=== PATIENT | female | born 1955 | race Caucasian/White ===

== ENCOUNTER 2016-12-04 12:07 | Day surgery (SDC) | payer BC, OTHER ==
[~2016-12-04 12:07] MED LIST: RINGERS SOLUTION,LACTATED 1,000 ML IV PRN
--- OUTSIDE RECORDS SUMMARY | 2016-12-04 12:11 | XMS REPORT | Continuity of Care Document ---
:1955 Author Organization [facility] ([facility]) Address [address] [place] [address] Phone [phone] Care Team Providers Name Role Phone Darnell Cosme Primary Care Provider [phone] Source Comments This disclosure is being made pursuant to the Care Everywhere program, applicable federal and state laws, and may not contain all informaitonavailable regarding this patient.[facility] ([facility]) Active Allergies and Adverse Reactions Allergen Noted Date Severity Reactions Comments Flunisolide Anaphylactic Shock Hydrocodone 07/16/2015 Pruritus Hydroxyzine Hcl Hematoma Sulfa (Sulfonamide Antibiotics) 07/16/2015 Rash Current Medications Prescription Sig. Disp. Refills Start Date End Date Status atorvastatin (LIPITOR) Take 10 mg by Active 10 mg tablet mouth every evening. cyclobenzaprine 10 mg Take 10 mg by Active tablet mouth at bedtime as needed for Muscle spasms albuterol 90 Use 2 Puffs by Active mcg/Actuation inhaler inhalation every 4 hours as needed nitroglycerin 0.[address] 0.4 mg Active tablet under the tongue every 5 minutes as needed for Chest pain (max 3 doses in 15 minutes) HYDROmorphone 4 mg Take 4-8 mg by Active tablet mouth every 4 hours as needed loratadine 10 mg tablet Take 10 mg by Active mouth daily as needed. metoPROLol succinate 50 Take 50 mg by Active mg XL tablet mouth daily gabapentin 300 mg Take 600 mg by Active capsule mouth 3 times daily. venlafaxine 75 mg XR Take 75 mg by Active capsule mouth daily. traZODone 50 mg tablet Take 50 mg by Active mouth at bedtime. oxybutynin 15 mg CR Take 1 tablet (15 30 tablet 09/18/2016 Active tablet mg total) by mouth daily. 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 RU abdominal pain 08/11/2015 Urinary incontinence in female 07/17/2015 Chest pain, unspecified 09/09/2007 Most Recent Encounters Date Type Specialty Providers Description 09/24/2016 Telephone Urology Karin Hurtado MD Chief Comp: Results 09/18/2016 Office Visit Urology Karin Hurtado MD Dx: Urge incontinence (Primary Dx) Immunizations Name Dates Previously Given Next Due Influenza, unspecified 07/02/2015 Social History Tobacco Use Types Packs/Day Years Used Date Former Smoker Quit: 09/07/1984 Smokeless Tobacco: Never Used Tobacco Cessation:Counseling Given: Yes Comments: Alcohol Use Drinks/Week oz/Week Comments Yes occasional Last Filed Vital Signs Vital Sign Reading Time Taken Blood Pressure 161/88 09/18/2016 2:34 PM 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 Temperature 35.9 C (96.6 F) 09/18/2016 2:34 PM 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 Respiratory Rate 20 05/27/2016 10:36 AM CDT Height 1.549 m (5' 0.98") 11/06/2015 1:16 PM 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 Weight 88 kg (194 lb 0.1 oz) 11/06/2015 1:16 PM 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 Body Mass Index 36.68 11/06/2015 1:16 PM 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 Oxygen Saturation 93% 08/15/2015 8:00 AM 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 Plan of Care Date Type Specialty Providers Description 12/09/2016 Appointment Radiology Chief Comp: Patient Reported Reason For Visit 12/09/2016 Appointment Med GI/Hepatology Johlin, Robert C Chief Comp: Patient MD Desiree Reported Reason For [address] [place] [address] [phone] (Fax) 12/18/2016 Appointment Urology Karin Hurtado, Chief Comp: Patient Reported Reason For [address] [place] [address] [phone] (Fax) Health Maintenance Due Date Last Done Comments Hepatitis B Vaccine (1 of 3 - Primary Series) 1955 Tdap Vaccine 1964 Lipid Disorder Screening 1971 Td Vaccine 1971 Cervical Cancer Screening 1983 Mammogram 1993 Colonoscopy 2003 Zoster Vaccine 2013 Influenza Vaccine: Seasonal (#1) 04/07/2016 07/02/2015 HCV Screening Completed 08/12/2015 Results from Last 3 Months URINE CULTURE, ROUTINE AEROBIC (09/18/2016 3:08 PM) Component Value Range Quantitative Culture Mixed Sara (Urogenital) suggesting an improperly collected specimen(A) Specimen Culture - Urine, Midstream clean catch POST-VOID RESIDUAL (BVI), POINT OF CARE (09/18/2016) Component Value Range POST-VOID RESIDUAL 30 ml
--- OUTSIDE RECORDS SUMMARY | 2016-12-04 12:11 | XMS REPORT | Continuity of Care Document ---
:1955 Author Organization [facility] Address Unavailable [place] [address] Care Team Providers Name Role Phone Darnell Cosme Primary Care Provider [phone] Source Comments This disclosure is being made pursuant to the F[employer]em[employer] program and maynot contain all information available regarding this patient.[facility] Active Allergies and Adverse Reactions Not on File Current Medications Be aware that medications may not be up to date as of this document. Alwaysverify current medications with the patient. Prescription Sig. Disp. Refills Start Date End Date Status HYDROmorphone Take 4-8 mg by Active (DILAUDID) 4 MG mouth every 4 tablet (four) hours as needed. atorvastatin Take 20 mg by Active (LIPITOR) 20 MG mouth daily. tablet oxybutynin (DITROPAN Take 15 mg by Active XL) 15 MG 24 hr mouth daily. tablet metoprolol tartrate Take 50 mg by Active (LOPRESSOR) 50 MG mouth daily. tablet clonazePAM Take 1 tablet 60 tablet 0 11/10/2016 Active (KLONOPIN) 0.25 MG (0.25 mg disintegrating total) by tablet mouth 2 (two) times daily as needed. venlafaxine HCl Take 1 tablet 90 tablet 3 11/20/2016 Active (EFFEXOR) 75 MG by mouth tablet daily. felodipine (PLENDIL) Take 1 tablet 90 tablet 1 11/27/2016 Active 5 MG 24 hr tablet by mouth daily. meloxicam (MOBIC) Take 1 tablet 180 tablet 0 12/01/2016 Active 7.5 MG tablet by mouth 2 7 (two) times daily. gabapentin Take 1 tablet 270 tablet 0 12/01/2016 Active (NEURONTIN) 600 MG by mouth 3 7 tablet (three) times daily. acyclovir (ZOVIRAX) Apply a thin 15 g 1 11/07/2016 Discontinued 5 % cream film to 7 affected area 6 times daily for 7 days gabapentin Take 600 mg by Discontinued (NEURONTIN) 600 MG mouth 3 7 tablet (three) times daily. meloxicam (MOBIC) Take 7.5 mg by Discontinued 7.5 MG tablet mouth 2 (two) 7 times daily. amLODIPine (NORVASC) Take 10 mg by Discontinued 10 MG tablet mouth daily. 7 amLODIPine (NORVASC) Take 1 tablet 90 tablet 3 11/13/2016 Discontinued 10 MG tablet by mouth 7 daily. felodipine (PLENDIL) Take 5 mg by Discontinued 5 MG 24 hr tablet mouth daily. 7 Active Problems Problem Noted Date Hypertension Hyperlipidemia Most Recent Encounters Date Type Specialty Providers Description 12/04/2016 Data Import 12/01/2016 Refill Family Medicine Milana Noel RN 11/27/2016 Refill Family Medicine Cristina Neal, [facility] 11/27/2016 Abstract Family Medicine Cristina Neal, [facility] 11/24/2016 Orders Only Provider, Not In System 11/20/2016 Telephone Family Medicine Monique Ortiz RN 11/20/2016 Refill Family Medicine Ariadne Bravo L, RMA 11/13/2016 Refill Family Medicine Cristina Neal, [employer] 11/11/2016 Refill Family Medicine Covert, Rose Zaidi, RMA 11/10/2016 Office Visit Family Medicine Darnell Cosme, Malcolm syta (Primary Dx); Essential hypertension; Burning tongue 11/07/2016 Refill Family Medicine Lawrence Ariadne L, RMA 11/07/2016 Refill Family Medicine Lawrence Ariadne L, RMA 11/07/2016 Refill Family Medicine Lawrence Ariadne L, A 11/04/2016 Abstract Family Medicine Cristina Neal, [employer] 11/03/2016 Refill Family Medicine Lawrence Ariadne L, RMA 11/03/2016 Refill Family Medicine Lawrence Ariadne L, RMA 10/16/2016 Scanned Document Family Medicine Provider, Not In System Social History Tobacco Use Types Packs/Day Years Used Date Never Smoker Smokeless Tobacco: Never Used Alcohol Use Drinks/Week oz/Week Comments No Last Filed Vital Signs Vital Sign Reading Time Taken Blood Pressure 185/83 11/10/2016 11:53 AM [employer] SUPER[employer]OR Pulse 66 11/10/2016 11:53 AM [employer] SUPERVISOR Temperature 36.3 C (97.4 F) 11/10/2016 11:53 AM [employer] SUPERVISOR Respiratory Rate 16 11/10/2016 11:53 AM [employer] SUPER[employer]OR Height 1.549 m (5' 1") 11/10/2016 11:53 AM P[employer] SUPERVISOR Weight 87.907 kg (193 lb 12.8 oz) 11/10/2016 11:53 AM [employer] SUPERVISOR Body Mass Index 36.64 11/10/2016 11:53 AM [employer] SUPERVISOR Oxygen Saturation 96% 11/10/2016 11:53 AM [employer] SUPERVISOR Plan of Care Patient Goal Type Goal Blood Pressure Blood Pressure below 140/90 Health Maintenance Due Date Last Done Comments Hepatitis C Screening 1971 Tetanus/Pertussis (1 - Tdap) 1972 Pap Smear 1974 Mammogram 2003 Well Adult Visit 2003 Zoster Vaccine 60+ 2013 Influenza Immunization (#1) 2016 Colonoscopy 02/13/2019 02/13/2009, 09/07/1993 Results from Last 3 Months US PELVIS TRANSAB TRANSVAG (11/12/2016)Comprehensive metabolic panel (2016 1:47 PM) Component Value Range Glucose 118(H)Comment: 60-100 mg/dL Fasting Plasma Glucose (FPG)<100 MG/DL Impaired Fasting Glucose (IFG) 100-125 MG/DL Provisional Diagnosis of Diabetes Mellitus > yv=143 MG/DL (Diagnosis Must Be Confirmed) BUN, Blood 16 10-20 mg/dL Creatinine 0.6 0.6-1.2 mg/dL Glomerular Filtration Rate 96 >80 mL/min/1.73mm2 Estimate Glomerlular Filtration Rate 111Comment:The estimated GFR >80 mL/min/1.73mm2 Estimate- has not been validated for women or patients with serious comorbid conditions, or with extremes of body size, muscle mass, or nutritional status. Calcium 9.4 8.4-10.2 mg/dL Sodium 138 136-145 mmol/L Potassium 4.2Comment:Results may be 3.5-4.6 mmol/L falsely increased due to hemolysis. Chloride 106 99-111 mmol/L CO2 20.4(L) 21.0-32.0 mmol/L Albumin 3.7 3.5-5.0 g/dL Total Protein 6.8Comment:Results may be 6.1-8.0 g/dL falsely increased due to hemolysis. Bilirubin Total 0.8 0.2-1.2 mg/dL Alkaline Phosphatase 84 40-150 U/L AST 19Comment:Results may be 5-34 U/L falsely increased due to hemolysis. ALT 19Comment:Results may be 0-55 u/L falsely increased due to hemolysis. Narrative Testing performed at [facility], [address] [place] [address].Step Down Nurse Mervin Vargas MD CBC auto differential (11/10/2016 1:47 PM) Component Value Range WBC 5.8 3.1-11.0 x10^3/uL RBC 5.23(H) 3.60-5.17 x10^6/uL Hemoglobin 15.0 11.1-15.3 g/dL Hematocrit 44.1 33.7-46.0 % MCV 84.3 81.0-98.0 fL MCH 28.7 27.2-33.3 pg MCHC 34.0 31.7-35.6 g/dL RDW 13.6 10.8-14.6 % SD-RDW 41.4 37.0-50.4 fL Platelets 217 147-370 x10^3/uL MPV 10.7 9.1-12.1 fL NE% 64.2 42.0-76.0 % %LYMPH 23.8 15.0-44.0 % %MONO 8.6 4.0-13.0 % % Eosinophils 2.9 0.0-6.0 % % Basophils 0.3 0.0-1.0 % Imm Gran Relative 0.2 0.0-1.0 % NE# 3.7 1.2-7.3 x10^3/uL Lymphs # 1.4 0.6-3.5 x10^3/uL Davie# 0.5 0.2-0.9 x10^3/uL Eosinophil # 0.2 0.0-0.4 x10^3/uL Baso# 0.0 0.0-0.1 x10^3/uL Imm Gran Absolute 0.01 0.00-0.10 x10^3/uL Specimen BLOOD Narrative Testing performed at [facility], [address] [place] [address].Step Down Nurse Mervin Vargas MD TSH (11/10/2016 1:47 PM) Component Value Range TSH 2.567 0.350-4.940 uIU/mL Narrative Testing performed at [facility], [address] [place] [address].Step Down Nurse Mervin Vargas MD Hemoglobin A1c (11/10/2016 1:47 PM) Component Value Range Hemoglobin A1C 5.9Comment: % Nondiabetic Patient:4.0 - 6.0 % Diabetic Patient: < 7.0 % Clinical correlation is essential Estimated Avg Glucose 123 mg/dL Narrative Testing performed at [facility], [address] [place] [address].Step Down Nurse Mervin Vargas MD
[2016-12-04] MEDS ORDERED: RINGERS SOLUTION,LACTATED 1,000 ML IV ONE (14:30)
[2016-12-04] MEDS ORDERED: BUPIVACAINE HCL/EPINEPHRINE 50 ML VIAL IJ ONE (14:40)
[2016-12-04] MEDS ORDERED: oxyCODONE HCL/ACETAMINOPHEN 1 TAB TABLET PO PRN (15:54)
[2016-12-04] MEDS ORDERED: IBUPROFEN 800 MG TABLET PO PRN (15:55)
--- NOTE | 2016-12-04 16:10 | OR ---
Operative Report - Dictated Report Narrative: Operative report: 12/04/2016 Preoperative diagnosis: Postmenopausal bleeding with endometrial polyp Postoperative diagnosis: Same Procedure: Hysteroscopy, polypectomy, D&C Surgeon: Gregoria Islas D.O. Bilingual Office Assistant: OR staff Anesthesia: Local and sedation IV fluids: [address] EBL: Minimal [place] Urine output: Not applicable Findings: Large endometrial polyp with thickened endometrial lining Drains: None Pathology: Endometrial curettings and endometrial polyps Complications: None Condition: Stable The patient was taken to the operating room. Anesthesia was found to be adequate. The patient was prepped and draped in the normal sterile fashion in the dorsal lithotomy position. A sterile speculum was then inserted into the vagina. The anterior lip of the cervix was then grasped with a single-tooth tenaculum. Local anesthetic was then injected in the cervix. The hysteroscope was then inserted into the cervix. Hydrodistention was then used to enter into the uterine cavity. The cavity was then surveyed and and a large pedunculated polyp was noted that protruded down to the cervix and attached to the left uterine sidewall. The hysteroscopic scissors were then used to remove the polyp from its base and then was grasped with the hysteroscopic graspers and removed under direct visualization. Upon review of the endometrial cavity there was protrusion into the cavity at the right fundus of uterus and this was also cut at its base and removed with the hysteroscopic graspers. The hysteroscope was then removed. The cervix was then sequentially dilated. A sharp curettage was then performed until the cry of the uterus was noted. Minimal bleeding was then noted from the cervix. Hysteroscopy was then performed and adequate curettage was noted throughout the entire cavity. The hysteroscope was then removed. The tenaculum was then removed. Hemostasis was noted. The speculum was then removed. All sponge lap and needle counts were correct 2. The patient was taken to the recovery room in stable condition.
[2016-12-04 16:35] VITALS: BP 136/78
== END 2016-12-04 12:08 | disposition home or self-care (01) ==
LOC: AMB 12:07
PROVIDERS: ATTEND Obstetrics & Gynecology Gynecologic Oncology
PROC: 0UDB8ZX Extraction of Endometrium, Via Natural or Artificial Opening Endoscopic, Diagnostic (ICD-10-PCS; principal; 2016-12-04 14:15)
DX: N84.0 Polyp of corpus uteri (principal); N95.0 Postmenopausal bleeding; I10 Essential (primary) hypertension; E78.00 Pure hypercholesterolemia, unspecified; E03.9 Hypothyroidism, unspecified; Z68.39 Body mass index [BMI] 39.0-39.9, adult